=== PATIENT | female | born 1995 | race Hispanic/Latino ===

== ENCOUNTER 2018-11-06 16:39 | Emergency (ER) | payer OTHER ==
[~2018-11-06] VITALS: Ht 160 cm; Wt 72.7 kg
[2018-11-06] MEDS ORDERED: KEFL500C17 PO (19:07)
[2018-11-06 19:18] VITALS: BP 118/65
[2018-11-06 20:14] LABS: CHLAMYDIA DNA AMPLIFICATION NEGATIVE (NEGATIVE); GC DNA AMPLIFICATION NEGATIVE (NEGATIVE)
== END 2018-11-06 19:19 | disposition home or self-care (01) ==
LOC: M ED 16:39
DX: N76.89 Other specified inflammation of vagina and vulva (principal); N89.8 Other specified noninflammatory disorders of vagina

== ENCOUNTER 2018-11-08 18:44 | Emergency (ER) | payer OTHER ==
[~2018-11-08] VITALS: Ht 160 cm; Wt 72.7 kg
[~2018-11-08 18:44] MED LIST: KEFL500C17 PO
[2018-11-08] MEDS ORDERED: KETOROLAC 30 MG/ML VIAL (J1885) IM ONE (20:00)
[2018-11-08] MEDS ORDERED: VALT1TAB PO (20:39)
[2018-11-08] MEDS ORDERED: IBUP-1022 PO (20:40)
[2018-11-08] MEDS ORDERED: ACYCLOVIR 200 MG CAPSULE PO ONE (20:45)
[2018-11-08 20:51] VITALS: BP 122/71
== END 2018-11-09 02:29 | disposition home or self-care (01) ==
LOC: M ED 18:44
DX: B00.9 Herpesviral infection, unspecified (principal); Z86.19 Personal history of other infectious and parasitic diseases; E28.2 Polycystic ovarian syndrome; Z79.2 Long term (current) use of antibiotics
CPT/HCPCS: 81025; 87255; 96372; 99284; J1885

== ENCOUNTER 2018-12-30 19:49 | Emergency (ER) | payer OTHER ==
[~2018-12-30] VITALS: Ht 160 cm; Wt 75.0 kg
[~2018-12-30 19:49] MED LIST changes: +IBUP-1022 PO; +VALT1TAB PO
[2018-12-30] MEDS ORDERED: METR375C3 PO (19:55)
[2018-12-30] MEDS ORDERED: KETOROLAC 30 MG/ML VIAL (J1885) IV ONE (20:45)
[2018-12-30 21:14] LABS: BASO # 0.1 10^3/uL (0.0-0.2); BASO % 0.3 % (0.0-1.0); EOS # 0.1 10^3/uL (0.0-0.50); EOS % 0.6 % (0.0-3.0); HEMOGLOBIN 13.8 g/dl (12.0-15.5); LYMPH # 2.5 10^3/uL (1.5-6.5); LYMPH % 15.1 % (24.0-44.0); MEAN CORPUSCULAR HEMOGLOBIN 28.7 pg (27.0-33.0); MEAN CORPUSCULAR HGB CONC 32.9 g/dl (32.0-36.5); MEAN CORPUSCULAR VOLUME 87.3 fl (80.0-96.0); MONO % 6.3 % (0.0-5.0); NEUTROPHILS # 12.6 10^3/uL (1.8-7.7); NEUTROPHILS % 77.1 % (36.0-66.0); PLATELET COUNT, AUTOMATED 268 10^3/uL (150-450); RED BLOOD COUNT 4.81 10^6/uL (4.00-5.40); WHITE BLOOD COUNT 16.3 10^3/uL (4.0-10.0)
[2018-12-30 21:44] LABS: ALBUMIN 3.9 GM/DL (3.2-5.2); ALT/SGPT 43 U/L (12-78); BILIRUBIN,DIRECT 0.1 MG/DL (0.0-0.2); BILIRUBIN,TOTAL 0.5 MG/DL (0.2-1.0); BLOOD UREA NITROGEN 13 MG/DL (7-18); CALCIUM LEVEL 8.6 MG/DL (8.5-10.1); CARBON DIOXIDE LEVEL 24 MEQ/L (21-32); CHLORIDE LEVEL 108 MEQ/L (98-107); CREATININE FOR GFR 0.74 MG/DL (0.55-1.30); GLOMERULAR FILTRATION RATE > 60.0 (>60); GLUCOSE, FASTING 96 MG/DL (70-100); LIPASE 84 U/L (73-393); POTASSIUM SERUM 4.2 MEQ/L (3.5-5.1); SODIUM LEVEL 142 MEQ/L (136-145)
[2018-12-30] MEDS ORDERED: ISOVUE-370 76% 100ML VIAL (Q9967) As Ordered ONE (22:35)
--- NOTE | 2018-12-30 22:44 | REPVR ---
EXAM: US Pelvis Complete (transabdominal and transvaginal) EXAM DATE/TIME: 12/30/18 (9:45pm) CLINICAL HISTORY: 23 year old female. PCOS with moderate pelvic pain. TECHNIQUE: Imaging protocol: Real-time transabdominal and transvaginal pelvic ultrasound with image documentation. Complete examination. COMPARISON: No relevant prior studies available FINDINGS: The LMP is not provided. The uterus is anteverted, measuring 9.0 x 3.4 x 4.0 cm in dimensions. No uterine mass is seen. The endometrium measures 8 mm in thickness. The right ovary measures 4.0 x 2.6 x 2.8 cm in size. The left ovary measures 4.6 x 2.7 x 3.9 cm in size. Complex left ovarian cyst (2 cm avg. size). Multiple small peripheral follicles are present in each ovary. There is no evidence of ovarian torsion on Doppler evaluation. Moderate amount of complex CVS fluid (probably hemorrhagic fluid). No solid adnexal masses. IMPRESSION: Findings compatible with PCOS. Complex, probably hemorrhagic left ovarian cyst (2 cm size), with probable rupture or leakage. Complex CDS fluid (probably hemorrhagic fluid). No evidence of ovarian torsion. Electronically signed by: Annmarie Coker On 12/30/2018 22:43:49 PM
[2018-12-30 22:48] LABS: CHLAMYDIA DNA AMPLIFICATION NEGATIVE (NEGATIVE); GC DNA AMPLIFICATION NEGATIVE (NEGATIVE)
[2018-12-30 22:50] VITALS: BP 115/52
--- NOTE | 2018-12-30 22:57 | REPVR ---
EXAM: CT Abdomen and Pelvis With Contrast EXAM DATE/TIME: 12/30/18 (10:22pm) CLINICAL HISTORY: 23 year old female with RLQ pain (radiating across her abdomen). History of PCOS. TECHNIQUE: Imaging protocol: Axial computed tomography images of the abdomen and pelvis with intravenous contrast. Coronal and sagittal reformatted images were created and reviewed. Radiation optimization: All CT scans at this facility use at least one of these dose optimization techniques: automated exposure control; mA and/or kV adjustment per patient size (includes targeted exams where dose is matched to clinical indication); or iterative reconstruction. Contrast material: Iso 370 Contrast volume: 100 ml Contrast route: IV COMPARISON: US PELVIS of 12/30/18 FINDINGS: ABDOMEN: Liver: No solid mass. Mild fatty infiltration. Gallbladder and bile ducts: Normal. No calcified stones. No ductal dilatation. Pancreas: Normal. No ductal dilatation. Spleen: Normal. No splenomegaly. Adrenals: Normal. No mass. Kidneys and ureters: Normal. No hydronephrosis. Stomach and bowel: Normal. No bowel obstruction. No mucosal thickening. Appendix: No evidence of appendicitis. PELVIS: Bladder: Unremarkable as visualized. Reproductive: Mildly prominent ovaries. Fluid: Moderate amount of hyperdense CDS fluid (CT density = 37 HU). ABDOMEN and PELVIS: Intraperitoneal space: Normal. No free air. No significant fluid collection. Bones/joints: No acute fracture nor dislocation. Soft tissues: Unremarkable. Vasculature: Normal. No abdominal aortic aneurysm. Lymph nodes: Normal. No enlarged lymph nodes. IMPRESSION: No acute bowel pathology. No hydronephrosis. Moderate amount of hyperdense pelvic fluid --- probable hemorrhagic fluid. Suspect ovarian cyst rupture (see separate US PELVIS report) (history of PCOS). Electronically signed by: Annmarie Coker On 12/30/2018 22:57:18 PM
[2018-12-30] MEDS ORDERED: KETO10TAB PO (23:28)
--- NOTE | 2018-12-31 08:59 | ED PDOC ---
Post-Departure Follow-Up ct abd/p and pelvic us faxed to [facility] for [facility] Lore Roth MD Dec 31, 2018 08:59
== END 2018-12-30 23:39 | disposition home or self-care (01) ==
LOC: M ED 19:49
DX: E28.2 Polycystic ovarian syndrome (principal); B02.9 Zoster without complications; Z87.42 Personal history of other diseases of the female genital tract; Z79.899 Other long term (current) drug therapy
CPT/HCPCS: 74177; 76830; 76856; 80048; 80076; 81001; 81025; 83605; 83690; 85025; 87086; 87210; 87491; 87591; 87661; 93976; 96374; 99284; J1885; Q9967

== ENCOUNTER 2019-02-19 16:52 | Emergency (ER) | payer OTHER ==
[~2019-02-19] VITALS: Ht 160 cm; Wt 77.3 kg
[~2019-02-19 16:52] MED LIST changes: +KETO10TAB PO; +METR375C3 PO
[2019-02-19] MEDS ORDERED: PROBCAP14 PO (16:59)
[2019-02-19] MEDS ORDERED: prenatal (16:59)
--- NOTE | 2019-02-19 17:31 | REP ---
Left knee five views: There is focal subcortical calcification in the diametaphysis of the distal femur medially compatible with healing fibrous cortical defect. Mineralization and joint spaces otherwise are unremarkable. There is no fracture or dislocation. No effusion. No calcifications. Impression: Healing fibrous cortical defect of the distal femur as described. Otherwise, negative left knee. Electronically Signed by Elijah Gutierrez MD 02/19/2019 05:22 P
[2019-02-19] MEDS ORDERED: KETOROLAC 60 MG/2 ML VIAL (J1885) IM ONE (19:45)
[2019-02-19] MEDS ORDERED: NAPR-837 PO (21:34)
[2019-02-19] MEDS ORDERED: ROBA500T PO (21:35)
[2019-02-19 21:43] VITALS: BP 133/78
--- NOTE | 2019-02-20 07:20 | REP ---
Left tibia-fibula four views : There is no fracture or dislocation. Mineralization and joint spaces are normal. There are no calcifications or foreign bodies. Impression: Negative Left tibia-fibula . Electronically Signed by Elijah Gutierrez MD 02/20/2019 07:12 A
--- NOTE | 2019-02-20 07:21 | REP ---
Left ankle four views : There is no fracture or dislocation. Mineralization and joint spaces are normal. There are no calcifications or foreign bodies. Impression: Negative left ankle . Electronically Signed by Elijah Gutierrez MD 02/20/2019 07:13 A
== END 2019-02-19 21:49 | disposition home or self-care (01) ==
LOC: M ED 16:52
DX: S83.92XA Sprain of unspecified site of left knee, initial encounter (principal); M85.00 Fibrous dysplasia (monostotic), unspecified site; X50.1XXA Overexertion from prolonged static or awkward postures, initial encounter; Y92.89 Other specified places as the place of occurrence of the external cause; Y93.89 Activity, other specified; Y99.1 Military activity; Z79.899 Other long term (current) drug therapy
CPT/HCPCS: 73564; 73590; 73610; 84702; 96372; 99284; J1885

== ENCOUNTER 2019-07-07 18:53 | Emergency (ER) | payer OTHER ==
[~2019-07-07] VITALS: Ht 160 cm; Wt 76.4 kg
[~2019-07-07 18:53] MED LIST changes: +NAPR-837 PO; +PROBCAP14 PO; +ROBA500T PO; +prenatal
[2019-07-07 20:00] LABS: BASO # 0.1 10^3/uL (0.0-0.2); BASO % 0.4 % (0.0-1.0); EOS # 0.1 10^3/uL (0.0-0.5); EOS % 1.1 % (0.0-3.0); HEMOGLOBIN 13.9 g/dl (12.0-15.5); LYMPH # 2.4 10^3/uL (1.5-5.0); LYMPH % 19.8 % (24.0-44.0); MEAN CORPUSCULAR HEMOGLOBIN 27.7 pg (27.0-33.0); MEAN CORPUSCULAR HGB CONC 32.3 g/dl (32.0-36.5); MEAN CORPUSCULAR VOLUME 85.8 fl (80.0-96.0); MONO # 0.7 10^3/uL (0.0-0.8); MONO % 6.1 % (0.0-5.0); NEUTROPHILS # 8.6 10^3/uL (1.5-8.5); NEUTROPHILS % 72.1 % (36.0-66.0); PLATELET COUNT, AUTOMATED 269 10^3/uL (150-450); RED BLOOD COUNT 5.01 10^6/uL (4.00-5.40); WHITE BLOOD COUNT 11.9 10^3/uL (4.0-10.0)
--- NOTE | 2019-07-07 21:23 | REPVR ---
PROCEDURE INFORMATION: Exam: US Pelvis Complete, Transabdominal Exam date and time: 07/07/2019 8:52 PM Clinical history: 23 years old, female; Pelvic pain; Additional info: Left pelvic pain; R/O cyst vs torsion TECHNIQUE: Imaging protocol: Real-time transabdominal pelvic ultrasound with image documentation. Complete exam. COMPARISON: US PELVIC NON-OB COMPLETE 12/30/2018 9:42 PM FINDINGS: Uterus/cervix: The uterus measures 8.7 cm in its cephalocaudad dimension and 3.2 x 4.2 cm in its AP and lateral dimensions. The endometrium measures 11 mm. Right adnexa: The right ovary measures 2.8 x 1.9 x 2.8 cm and demonstrates arterial and venous blood flow. Left adnexa: The left ovary measures 3.3 x 3.5 x 3.0 cm and demonstrates a cyst/follicle measuring 22 x 18 x 15 mm. There is left ovarian arterial and venous blood flow. Free fluid: None. Bladder: The urinary bladder is normal. IMPRESSION: 1. Left ovarian cyst/follicle measuring 22 x 18 x 15 mm. 2. Otherwise negative pelvic sonogram. There is bilateral ovarian blood flow with no torsion. Electronically signed by: Surya Rod On 07/07/2019 21:23:35 PM
[2019-07-07 21:28] LABS: CHLAMYDIA DNA AMPLIFICATION POSITIVE (NEGATIVE); GC DNA AMPLIFICATION NEGATIVE (NEGATIVE)
[2019-07-07] MEDS ORDERED: AZITHROMYCIN 250 MG TAB PO ONE (22:00)
[2019-07-07 22:08] VITALS: BP 119/80
[2019-07-07] MEDS ORDERED: BACTRIM 160MG/800MG DS TAB PO ONE (22:15)
[2019-07-07] MEDS ORDERED: BACT800T5 PO (22:20)
== END 2019-07-07 22:44 | disposition home or self-care (01) ==
LOC: M ED 18:53
DX: N39.0 Urinary tract infection, site not specified (principal); N83.02 Follicular cyst of left ovary; A74.9 Chlamydial infection, unspecified; E28.2 Polycystic ovarian syndrome

== ENCOUNTER 2019-08-25 16:08 | Emergency (ER) | payer OTHER ==
[~2019-08-25] VITALS: Ht 160 cm; Wt 75.2 kg
[~2019-08-25 16:08] MED LIST changes: +BACT800T5 PO
[2019-08-25] MEDS ORDERED: PREN29TA4 PO (16:22)
[2019-08-25 17:56] LABS: BASO # 0.1 10^3/uL (0.0-0.2); BASO % 0.5 % (0.0-1.0); EOS # 0.1 10^3/uL (0.0-0.5); EOS % 0.8 % (0.0-3.0); HEMATOCRIT 39.9 % (36.0-47.0); HEMOGLOBIN 13.3 g/dl (12.0-15.5); LYMPH # 2.7 10^3/uL (1.5-5.0); LYMPH % 21.9 % (24.0-44.0); MEAN CORPUSCULAR HEMOGLOBIN 28.4 pg (27.0-33.0); MEAN CORPUSCULAR HGB CONC 33.3 g/dl (32.0-36.5); MEAN CORPUSCULAR VOLUME 85.1 fl (80.0-96.0); MONO % 7.9 % (0.0-5.0); NEUTROPHILS # 8.4 10^3/uL (1.5-8.5); NEUTROPHILS % 68.3 % (36.0-66.0); PLATELET COUNT, AUTOMATED 286 10^3/uL (150-450); RED BLOOD COUNT 4.69 10^6/uL (4.00-5.40); WHITE BLOOD COUNT 12.3 10^3/uL (4.0-10.0)
--- NOTE | 2019-08-25 19:45 | REPVR ---
PROCEDURE INFORMATION: Exam: US First Trimester, Transabdominal and US , Transvaginal Exam date and time: 08/25/2019 6:40 PM Age: 24 years old Clinical indication: complicated by abdominal or pelvic pain; Lower; First trimester; Gestational age or lmp: 4; ; Additional info: Cramping/discharge TECHNIQUE: Imaging protocol: Real-time transabdominal obstetrical ultrasound of the maternal pelvis and a first trimester , less than 14 weeks 0 days, with image documentation. Transvaginal imaging was used for better evaluation of the fetus and adnexa. COMPARISON: US PELVIC NON-OB COMPLETE 07/07/2019 8:38 PM FINDINGS: GESTATION: Gestation: No definitive intrauterine gestational sac is visualized. Ectopic cannot be excluded. Heart rate: N/A. Placenta: N/A. Amniotic fluid: N/A. BIOMETRY: Estimated gestational age: N/A. MATERNAL: Uterus: The uterus measures 8.9 x 4.2 x 4.6 cm. No uterine mass visualized. Cervix: Unremarkable, as visualized. Right adnexa: The right ovary measures 2.9 x 1.8 x 2.1 cm. Small follicles are visualized within the right ovary. There is preservation of blood flow within the right ovary. No adnexal mass. Left adnexa: The left ovary measures 3.4 x 2.3 x 2.5 cm. There is preservation of blood flow within the left ovary. Within the left ovary, there is a 9 mm dominant follicle or corpus luteum cyst. Intraperitoneal: No intraperitoneal free fluid. IMPRESSION: 1. No definitive intrauterine gestational sac is visualized. Ectopic cannot be excluded. Correlation with serial hCG levels and follow-up ultrasonography are recommended. 2. Within the left ovary, there is a 9 mm dominant follicle or corpus luteum cyst. Electronically signed by: Stefan Guevara On 08/25/2019 19:45:15 PM
[2019-08-25 20:49] VITALS: BP 142/66
[2019-08-25 21:17] LABS: CHLAMYDIA DNA AMPLIFICATION NEGATIVE (NEGATIVE); GC DNA AMPLIFICATION NEGATIVE (NEGATIVE)
== END 2019-08-25 21:32 | disposition home or self-care (01) ==
LOC: M ED 16:08
DX: O26.899 Other specified pregnancy related conditions, unspecified trimester (principal); O34.80 Maternal care for other abnormalities of pelvic organs, unspecified trimester; Z3A.00 Weeks of gestation of pregnancy not specified; Z79.899 Other long term (current) drug therapy

== ENCOUNTER → 2019-08-27 | Outpatient (CLI) | payer OTHER ==
[~2019-08-27] MED LIST changes: +PREN29TA4 PO
== END ==
LOC: M LAB 18:52
PROVIDERS: ATTEND Physician Assistant
DX: O26.899 Other specified pregnancy related conditions, unspecified trimester (principal); Z3A.00 Weeks of gestation of pregnancy not specified

== ENCOUNTER 2019-09-16 08:48 | Emergency (ER) | payer OTHER ==
[~2019-09-16] VITALS: Ht 160 cm; Wt 75.7 kg
[2019-09-16] MEDS ORDERED: VITAMIN B6 (08:55)
[2019-09-16] MEDS ORDERED: UNASOM (08:55)
[2019-09-16 10:22] LABS: BASO # 0.1 10^3/uL (0.0-0.2); BASO % 0.4 % (0.0-1.0); EOS # 0.1 10^3/uL (0.0-0.5); EOS % 0.7 % (0.0-3.0); HEMOGLOBIN 13.7 g/dl (12.0-15.5); LYMPH # 2.2 10^3/uL (1.5-5.0); LYMPH % 17.6 % (24.0-44.0); MEAN CORPUSCULAR HEMOGLOBIN 28.5 pg (27.0-33.0); MEAN CORPUSCULAR HGB CONC 33.4 g/dl (32.0-36.5); MEAN CORPUSCULAR VOLUME 85.4 fl (80.0-96.0); MONO # 0.7 10^3/uL (0.0-0.8); MONO % 5.2 % (0.0-5.0); NEUTROPHILS # 9.5 10^3/uL (1.5-8.5); NEUTROPHILS % 75.4 % (36.0-66.0); PLATELET COUNT, AUTOMATED 244 10^3/uL (150-450); WHITE BLOOD COUNT 12.7 10^3/uL (4.0-10.0)
[2019-09-16 10:28] LABS: APPEARANCE, URINE HAZY (CLEAR); BACTERIA, URINE AUTO 2+ (NEGATIVE); BILIRUBIN, URINE AUTO NEGATIVE (NEGATIVE); BLOOD, URINE BLOOD NEGATIVE (NEGATIVE); COLOR, URINE YELLOW (YELLOW); GLUCOSE, URINE (UA) AUTO NEGATIVE (NEGATIVE); KETONE, URINE AUTO TRACE mg/dL (NEGATIVE); LEUKOCYTE ESTERASE, URINE AUTO TRACE (NEGATIVE); MUCUS, URINE SMALL (NEGATIVE); NITRITE, URINE AUTO NEGATIVE (NEGATIVE); PROTEIN, URINE AUTO NEGATIVE (NEGATIVE); RBC, URINE AUTO 6 /HPF (0-3); SPECIFIC GRAVITY URINE AUTO 1.019 (1.002-1.035); SQUAMOUS EPITHELIAL CELL UR AU 2 /HPF (0-6); UROBILINOGEN, URINE AUTO 0.2 mg/dL (0.0-2.0); WBC, URINE AUTO 2 /HPF (0-3)
[2019-09-16 10:48] LABS: INFLUENZA A AMPLIFICATION NEGATIVE (NEGATIVE); INFLUENZA B AMPLIFICATION NEGATIVE (NEGATIVE)
[2019-09-16 11:10] VITALS: BP 116/70
[2019-09-16] MEDS ORDERED: ACETAMINOPHEN 325 MG TAB PO ONE (11:30)
[2019-09-16] MEDS ORDERED: KEFL500C17 PO (11:32)
== END 2019-09-16 11:40 | disposition home or self-care (01) ==
LOC: M ED 08:48
DX: O23.41 Unspecified infection of urinary tract in pregnancy, first trimester (principal); Z3A.01 Less than 8 weeks gestation of pregnancy; Z79.899 Other long term (current) drug therapy

== ENCOUNTER 2019-09-17 10:29 | Emergency (ER) | payer OTHER ==
[~2019-09-17] VITALS: Ht 160 cm; Wt 76.1 kg
[~2019-09-17 10:29] MED LIST changes: +UNASOM; +VITAMIN B6
[2019-09-17 11:23] LABS: HEMATOCRIT 38.7 % (36.0-47.0); MEAN CORPUSCULAR HEMOGLOBIN 28.8 pg (27.0-33.0); MEAN CORPUSCULAR HGB CONC 33.6 g/dl (32.0-36.5); MEAN CORPUSCULAR VOLUME 85.6 fl (80.0-96.0); PLATELET COUNT, AUTOMATED 258 10^3/uL (150-450); RED BLOOD COUNT 4.52 10^6/uL (4.00-5.40); WHITE BLOOD COUNT 13.6 10^3/uL (4.0-10.0)
--- NOTE | 2019-09-17 13:16 | REP ---
EMERGENCY FIRST TRIMESTER OBSTETRIC SONOGRAPHY: HISTORY: Vaginal bleeding. Comparison sonography, August 15, 2019. Transabdominal and transvaginal scanning are performed. There is a living single intrauterine gestation. The crown-rump length of the embryonic pole is 16 mm. This corresponds to an 9-uqnq-4-day gestational age estimate. heart rate is recorded at 178 beats per minute. There is a subchorionic fluid collection consistent with a hemorrhage along the inferior aspect of the sac. This measures 1.6 x 1.8 x 2.6 cm. There is a small cyst in the maternal left ovary consistent with corpus luteum. No free fluid. IMPRESSION: Single living intrauterine gestation at 8 weeks 0 days by crown-rump length. JOSHUA by sonography, April 28, 2020. There is a 2.6 cm subchorionic hemorrhage at the inferior aspect of the gestational sac. Electronically Signed by David Tee MD 09/17/2019 01:42 P
[2019-09-17 14:18] LABS: CHLAMYDIA DNA AMPLIFICATION NEGATIVE (NEGATIVE); GC DNA AMPLIFICATION NEGATIVE (NEGATIVE)
[2019-09-17 15:14] VITALS: BP 116/70
== END 2019-09-17 16:16 | disposition home or self-care (01) ==
LOC: M ED 11:54
DX: O20.0 Threatened abortion (principal); O26.891 Other specified pregnancy related conditions, first trimester; O20.8 Other hemorrhage in early pregnancy; Z32.01 Encounter for pregnancy test, result positive; O34.81 Maternal care for other abnormalities of pelvic organs, first trimester; Z3A.08 8 weeks gestation of pregnancy; Z79.899 Other long term (current) drug therapy

== ENCOUNTER 2019-10-08 20:51 | Emergency (ER) | payer OTHER ==
[~2019-10-08] VITALS: Ht 160 cm; Wt 71.8 kg
[2019-10-08] MEDS ORDERED: ONDA-83 PO (21:00)
[2019-10-08 21:43] LABS: BASO % 0.3 % (0.0-1.0); EOS # 0.1 10^3/uL (0.0-0.5); EOS % 0.9 % (0.0-3.0); HEMATOCRIT 37.8 % (36.0-47.0); HEMOGLOBIN 12.4 g/dl (12.0-15.5); LYMPH # 2.4 10^3/uL (1.5-5.0); LYMPH % 19.9 % (24.0-44.0); MEAN CORPUSCULAR HEMOGLOBIN 27.9 pg (27.0-33.0); MEAN CORPUSCULAR HGB CONC 32.8 g/dl (32.0-36.5); MEAN CORPUSCULAR VOLUME 85.1 fl (80.0-96.0); MONO # 0.7 10^3/uL (0.0-0.8); MONO % 5.6 % (0.0-5.0); NEUTROPHILS # 8.9 10^3/uL (1.5-8.5); NEUTROPHILS % 72.7 % (36.0-66.0); PLATELET COUNT, AUTOMATED 216 10^3/uL (150-450); RED BLOOD COUNT 4.44 10^6/uL (4.00-5.40); WHITE BLOOD COUNT 12.2 10^3/uL (4.0-10.0)
[2019-10-08 22:11] LABS: ALBUMIN 3.5 GM/DL (3.2-5.2); ALT/SGPT 28 U/L (12-78); BILIRUBIN,DIRECT 0.2 MG/DL (0.0-0.2); BILIRUBIN,TOTAL 0.2 MG/DL (0.2-1.0); BLOOD UREA NITROGEN 5 MG/DL (7-18); CALCIUM LEVEL 9.3 MG/DL (8.5-10.1); CARBON DIOXIDE LEVEL 28 MEQ/L (21-32); CHLORIDE LEVEL 106 MEQ/L (98-107); CREATININE FOR GFR 0.69 MG/DL (0.55-1.30); GLOMERULAR FILTRATION RATE > 60.0 (>60); GLUCOSE, FASTING 85 MG/DL (70-100); LIPASE 73 U/L (73-393); POTASSIUM SERUM 3.8 MEQ/L (3.5-5.1); SODIUM LEVEL 139 MEQ/L (136-145); TOTAL PROTEIN 6.7 GM/DL (6.4-8.2)
[2019-10-08] MEDS ORDERED: METOCLOPRAMIDE INJ 10MG/2ML VIAL (J2765) IV ONE (22:30)
[2019-10-08 23:23] LABS: INFLUENZA A AMPLIFICATION NEGATIVE (NEGATIVE); INFLUENZA B AMPLIFICATION NEGATIVE (NEGATIVE)
[2019-10-09] VITALS: BP 128/75
[2019-10-09] MEDS ORDERED: diphenhydrAMINE 25 MG CAP PO ONE
== END 2019-10-09 00:07 | disposition home or self-care (01) ==
LOC: M ED 20:51
DX: O21.0 Mild hyperemesis gravidarum (principal); Z3A.11 11 weeks gestation of pregnancy; Z79.899 Other long term (current) drug therapy
CPT/HCPCS: 80048; 80076; 81001; 83690; 85025; 87086; 87502; 96374; 99284; J2765

== ENCOUNTER → 2019-12-12 | Outpatient (CLI) | payer OTHER ==
[~2019-12-12] MED LIST changes: +ONDA-83 PO
--- NOTE | 2019-12-12 17:47 | REP ---
Obstetric sonography: History: Supervision of , for anatomy. Findings: Scanning through the gravid uterus demonstrates a viable single intrauterine gestation in a breech lie. motion is observed and heart rate is recorded at 144 beats per minute. An anterior grade 1 placenta is seen without evidence of previa or abruption. Amniotic fluid is subjectively normal. Closed cervical length is 3.2 cm. No extrauterine abnormalities observed. Umbilical cord is seen draping over the shoulders. No anomaly is seen. nose and lips are seen but facial profile is less than optimally seen. Similarly four chamber heart visualization was less than optimal due to position. The following additional anatomic structures are identified and felt to be sonographically unremarkable: cranium, choroid plexus, cavum, cerebellum and posterior fossa, lungs, left and right ventricular outflow tract views, diaphragm, left-sided stomach, abdominal wall cord insertion, three-vessel cord, kidneys and bladder, spine, upper and lower extremities. Biometry chart: BPD 4.6 cm = 19 weeks 6 days HC 17.4 cm = 20 weeks 0 days AC 15.0 cm = 20 weeks 2 days FL 3.3 cm = 20 weeks 3 days HL 3.1 cm = 20 weeks 3 days HC/AC ratio normal 1.16. Cephalic index normal 0.72. Estimated weight 345 grams, 0 pounds 12 ounces, 54th percentile for 20 weeks 1 day. Impression: Viable single intrauterine gestation at 20 weeks 1 day by today's composite sonographic criteria. Expected gestational age estimate based on prior sonography is 20 weeks 2 days. JOSHUA by prior sonography 28 April 2020. facial profile and four-chamber heart views are less than optimally visualized due to position. Electronically Signed by David Tee MD 12/12/2019 07:17 P
== END ==
LOC: M RAD 13:48
PROVIDERS: ATTEND Nurse Practitioner Women's Health
DX: Z34.92 Encounter for supervision of normal pregnancy, unspecified, second trimester (principal); Z3A.20 20 weeks gestation of pregnancy

== ENCOUNTER → 2020-01-06 | Outpatient (CLI) | payer OTHER ==
--- NOTE | 2020-01-07 05:53 | REP ---
Clinical: Anatomical evaluation. Comparison: 12/12/2019 . Findings: Examination demonstrates a single live intrauterine in cephalic presentation. motion is identified by technologist. Placenta is noted anterior and grade I without evidence for placenta previa or abruption. Amniotic fluid volume is normal. Cervix measures 3.4 cm in length and appears closed. Nuchal cord cannot be excluded. Gestational age by LMP 23 weeks 5 days with JOSHUA 04/29/2020 . Gestational age by current measurements 23 weeks 6 days with JOSHUA 04/28/2020 . FHR equals 149 beats per minute. Estimated weight 622 grams ( 45th percentile). Anatomical assessment demonstrates normal structures including cranium, choroid plexus, cavum, cerebellum/posterior fossa, facial features, lungs, four-chamber heart/ventricular outflow tracts, diaphragm, stomach, cord insertion/three-vessel cord, kidneys/bladder, spine, and extremities. Echogenic focus within the left cardiac ventricle again noted and consistent with prominent chordae tendineae. Impression: 1. Single live intrauterine demonstrating appropriate interval growth in cephalic presentation. 2. In conjunction with prior examination anatomical assessment is essentially normal. 3. Nuchal cord cannot be excluded. Electronically Signed by Eduardo Lau MD 01/07/2020 05:44 A
== END ==
LOC: M RAD 14:23
PROVIDERS: ATTEND Obstetrics & Gynecology
DX: Z36.2 Encounter for other antenatal screening follow-up (principal); Z3A.23 23 weeks gestation of pregnancy

== ENCOUNTER 2020-04-19 09:25 | Inpatient (IN) | payer OTHER ==
[2020-04-19] MEDS ORDERED: PENICILLIN G POTASSIUM 5 MU VIAL As Ordered ONE (10:13)
[2020-04-19] MEDS ORDERED: FENTANYL 2MCG/ML ROPIVACAINE 0.2% IN 0.9% NACL 100ML IVBAG As Ordered ONE ×2 (12:40→22:46)
[2020-04-19] MEDS ORDERED: PENICILLIN 100,000 U/ML SYRINGE 2.5MU As Ordered ONE ×2 (14:43→18:42)
[2020-04-19] MEDS ORDERED: ONDANSETRON 4MG/2ML VIAL As Ordered ONE (16:25)
[2020-04-19] MEDS ORDERED: OXYTOCIN INJ 10 UNITS/ML VIAL (J2590) As Ordered ONE (19:14)
[2020-04-19] MEDS ORDERED: OXYTOCIN 30 UNITS IN 0.9% NaCl 500ML IV BAG (J2590) As Ordered ONE (19:14)
[2020-04-20] MEDS ORDERED: IBUPROFEN 800 MG TAB As Ordered ONE (07:31)
[2020-04-21] MEDS ORDERED: IBUPROFEN 800 MG TAB As Ordered ONE ×2 (08:23→17:23)
[2020-04-21] MEDS ORDERED: ACETAMINOPHEN 500 MG TAB PO PRN (16:15)
[2020-04-21] MEDS ORDERED: DOCUSATE SODIUM 100 MG CAP PO PRN (16:15)
[2020-04-21] MEDS ORDERED: ANUSOL HC CREAM 30GM TOP PRN (16:15)
[2020-04-21] MEDS ORDERED: MOM 30ML SUSPENSION UDC PO PRN (16:15)
[2020-04-21] MEDS ORDERED: SLF 3 ML SYR IV PRN (16:15)
[2020-04-21] MEDS ORDERED: METHYLERGONOVINE MALEATE 0.2 MG TAB PO PRN (16:15)
[2020-04-21] MEDS ORDERED: IBUPROFEN 800 MG TAB PO PRN (16:15)
[2020-04-21] MEDS ORDERED: ACETAMINOPHEN TAB 650MG DOSE (2X325MG) PO PRN (16:15)
[2020-04-21] MEDS ORDERED: SLF 3 ML SYR IV SCH (22:00)
[2020-04-23 12:55] LABS: HEMATOCRIT 25.2 % (36.0-47.0); HEMOGLOBIN 8.4 g/dl (12.0-15.5); MEAN CORPUSCULAR HEMOGLOBIN 27.5 pg (27.0-33.0); MEAN CORPUSCULAR HGB CONC 33.3 g/dl (32.0-36.5); MEAN CORPUSCULAR VOLUME 82.4 fl (80.0-96.0); PLATELET COUNT, AUTOMATED 202 10^3/uL (150-450); RED BLOOD COUNT 3.06 10^6/uL (4.00-5.40); WHITE BLOOD COUNT 13.8 10^3/uL (4.0-10.0)
--- NOTE | 2020-06-08 14:20 | HPE ---
DATE OF ADMISSION: 04/19/2020 This is a 24-year-old, 1, para 0, last menstrual period (LMP) 07/24/2019, estimated date of confinement (EDC) 04/29/2020 at 38 and 1 weeks of gestation with a history of spontaneous rupture of membranes at 0600 hours and contractions. Risk factors: She is HSV susceptible, GBS positive, echogenic focus, quad screen negative. Laboratories: O positive, HIV negative, RPR negative, Rubella immune, Varicella immune, Pap negative, urine negative, gonorrhea and chlamydia are negative, 1- hour glucose was 135, her 3-hour GTT fasting was 88, 1-hour 133, 2-hour 107, and 3-hour 78. Blood pressure 115/64, respirations are 18, pulse 81, temperature is 98.0. On examination, she appears distressed, symphysis fundus height is 38, vertex, category 1 strip. Pelvic examination: Clear liquor, 2 cm, posterior, 80% effaced, -3 station. Our plan of care is to give her antibiotic prophylaxis for GBS, epidural as required, and if necessary, augmentation. We discussed the risks and benefits of vaginal delivery including hemorrhage, infection, abnormalities, risk of emergency section. The risks of augmentation of Pitocin include tachysystole, uterine category 2-3 strip, need for emergency section, the use of forceps or a vacuum, in instances when baby is having difficulty and requires immediate delivery or maternal exhaustion when you cannot push out the baby on its own, are cephalohematoma, scratches to the head, or admission to the intensive care unit (NICU). Risks of vaginal delivery include tears, lacerations to the vagina, the perineum, to the rectum, cervical lacerations, all of which require repair at appropriate interval. The patient expressed understanding, is requesting epidural. Safe to proceed. [facility]
--- NOTE | 2020-06-11 15:56 | DN ---
DATE OF DELIVERY: 04/19/2020 DESCRIPTION OF DELIVERY: This patient is a 1, para 0, admitted with contractions and spontaneous rupture of membranes. She had a spontaneous vaginal delivery with epidural in place of a live female , weighing 7 pounds 10 ounces (3450 grams). Apgars of 9 and 9 at one and five minutes respectively. Arterial and venous pH was performed. Baby had terminal meconium and voiding at delivery. Patient sustained a first-degree tear and repaired in the usual fashion with 2-0 Vicryl on a [id number]. Placenta delivered spontaneously and complete. Lateral anteroposterior sierra of the cervix were intact. Sphincter was tight. Patients risk factors were GBS positive was treated in time, echogenic focus, but had a [id number], which was negative and HSV prophylaxis. In summary, term gestation with delivery of a live female . Uterus contracted well on the Pitocin. Patient and baby tolerated procedure well. MTDD
--- NOTE | 2020-06-12 17:42 | IPN ---
DATE: 04/20/2020 This lady is a 1, now para 1. Had a spontaneous vaginal delivery, female , weighing 7 pounds 10 ounces, 3450 grams, scores of 9 and 9 at one and five minutes, respectively. Arterial pH 7.37, base excess -2.9, venous pH 7.36, base excess -3.7. On the first day we discussed phlebitis, cystitis, mastitis, metritis, and cellulitis, diet, exercise, pain management, and perineal, breast, and wound care. The rest of the examination unremarkable. Normocephalic, atraumatic. Neck: Full range of motions. Pupils equal and reactive to light. Distal pulses are symmetric. No evidence of deep venous thrombosis (DVT), pulmonary embolus (PE), or superficial phlebitis. Chest is clear bilaterally to bases. No wheezes or rhonchi. No costovertebral angle (CVA) tenderness. Abdomen is soft. Uterus 2 below. Lochia is moderate. Four-quadrant bowel sounds are noted. Blood pressure 117/69, respirations are 18, pulse 78, temperature is 97.9. In summary, we have a term gestation, delivered a live- female . Plan is for discharge tomorrow. Medications will be picked up at [place]. A 6-week checkup at [facility]. MTDD
[2020-06-29 15:24] LABS: HEMOGLOBIN 10.5 g/dl (12.0-15.5); MEAN CORPUSCULAR HEMOGLOBIN 26.6 pg (27.0-33.0); MEAN CORPUSCULAR HGB CONC 32.8 g/dl (32.0-36.5); PLATELET COUNT, AUTOMATED 279 10^3/uL (150-450); RED BLOOD COUNT 3.95 10^6/uL (4.00-5.40); WHITE BLOOD COUNT 12.9 10^3/uL (4.0-10.0)
[2020-07-05 08:09] LABS: CORD GAS PH A 7.377 UNITS
[2020-07-05 08:10] LABS: CORD GAS ABE A -2.9; CORD GAS HCO3 A 21.8 MEQ/L; CORD GAS O2 SAT A 75.7 %; CORD GAS PCO2 A 37.9 mmHg; CORD GAS PO2 A 32.4 mmHg; CORD GAS SBC A 21.5 MEQ/L; CORD GAS TCO2 A 22.9 MEQ/L
[2020-07-05 08:11] LABS: CORD GAS ABE V -3.7; CORD GAS HCO3 V 21.2 MEQ/L; CORD GAS O2 SAT V 72.8 %; CORD GAS PCO2 V 38.1 mmHg; CORD GAS PH V 7.363 UNITS; CORD GAS PO2 V 30.7 mmHg; CORD GAS SBC V 20.8 MEQ/L; CORD GAS TCO2 V 22.4 MEQ/L
== END 2020-04-22 23:17 | disposition home or self-care (01) | DRG 807 ==
LOC: M OBS 09:25
PROVIDERS: ADMIT Obstetrics & Gynecology; ATTEND Obstetrics & Gynecology
PROC: 10E0XZZ Delivery of Products of Conception, External Approach (ICD-10-PCS; principal; 2020-04-19)
PROC: 0HQ9XZZ Repair Perineum Skin, External Approach (ICD-10-PCS; 2020-04-19)
DX: O70.0 First degree perineal laceration during delivery (principal); Z37.0 Single live birth; Z3A.38 38 weeks gestation of pregnancy; O77.0 Labor and delivery complicated by meconium in amniotic fluid; O99.824 Streptococcus B carrier state complicating childbirth

== ENCOUNTER 2021-05-13 20:54 | Emergency (ER) | payer OTHER ==
[~2021-05-13] VITALS: Ht 160 cm; Wt 81.5 kg
[2021-05-13] MEDS ORDERED: TRAZ1TAB14 PO (21:02)
[2021-05-13] MEDS ORDERED: PROZ40CA PO (21:02)
[2021-05-14] MEDS ORDERED: NS 1,000 ML IV ONE (02:50)
[2021-05-14] MEDS ORDERED: KETOROLAC 30 MG/ML 1ML VIAL IV ONE (02:50)
[2021-05-14] MEDS ORDERED: ACETAMINOPHEN 500 MG TAB PO ONE (02:50)
[2021-05-14] MEDS ORDERED: diphenhydrAMINE 50MG/ML VIAL (J1200) IV ONE (02:50)
[2021-05-14] MEDS ORDERED: MAG SULF 1GM/100ML (MAG RUN) 1 GM in IV 1 EA IV ONE (02:50)
[2021-05-14] MEDS ORDERED: METOCLOPRAMIDE INJ 10MG/2ML VIAL (J2765 PER 1) IV ONE (02:50)
[2021-05-14 03:00] LABS: BASO # 0.1 10^3/uL (0.0-0.2); BASO % 0.5 % (0.0-1.0); EOS # 0.1 10^3/uL (0.0-0.5); EOS % 1.1 % (0.0-3.0); HEMATOCRIT 40.1 % (36.0-47.0); HEMOGLOBIN 13.1 g/dl (12.0-15.5); LYMPH # 3.6 10^3/uL (1.5-5.0); LYMPH % 28.5 % (24.0-44.0); MEAN CORPUSCULAR HEMOGLOBIN 26.5 pg (27.0-33.0); MEAN CORPUSCULAR HGB CONC 32.7 g/dl (32.0-36.5); MONO # 0.8 10^3/uL (0.0-0.8); MONO % 6.3 % (2.0-8.0); NEUTROPHILS # 7.9 10^3/uL (1.5-8.5); NEUTROPHILS % 63.1 % (36.0-66.0); PLATELET COUNT, AUTOMATED 275 10^3/uL (150-450); RED BLOOD COUNT 4.95 10^6/uL (4.00-5.40); WHITE BLOOD COUNT 12.5 10^3/uL (4.0-10.0)
--- NOTE | 2021-05-14 05:05 | REPVR ---
PROCEDURE INFORMATION: Exam: CT Head Without Contrast Exam date and time: 05/14/2021 2:46 AM Age: 25 years old Clinical indication: Pain; Headache not specified; Additional info: Chronic headache TECHNIQUE: Imaging protocol: Computed tomography of the head without contrast. Radiation optimization: All CT scans at this facility use at least one of these dose optimization techniques: automated exposure control; mA and/or kV adjustment per patient size (includes targeted exams where dose is matched to clinical indication); or iterative reconstruction. COMPARISON: No relevant prior studies available. FINDINGS: Brain: Normal. No hemorrhage. Unremarkable white matter. No mass effect. Cerebral ventricles: No ventriculomegaly. Paranasal sinuses: Visualized sinuses are unremarkable. No fluid levels. Mastoid air cells: Visualized mastoid air cells are well aerated. Bones/joints: Unremarkable. No acute fracture. Soft tissues: Unremarkable. IMPRESSION: No acute intracranial abnormality. Electronically signed by: Tutu Brown On 05/14/2021 05:05:07 AM
[2021-05-14 07:04] VITALS: BP 107/62
== END 2021-05-14 07:07 | disposition home or self-care (01) ==
LOC: M ED 20:54
DX: R51.9 Headache, unspecified (principal); F32.9 Major depressive disorder, single episode, unspecified

== ENCOUNTER 2022-01-26 10:23 | Emergency (ER) | payer OTHER ==
[~2022-01-26] VITALS: Ht 160 cm; Wt 80.9 kg
[2022-01-26 10:23] VITALS: BP 137/92
[~2022-01-26 10:23] MED LIST changes: +PROZ40CA PO; +TRAZ1TAB14 PO
[2022-01-26] MEDS ORDERED: ALIG4CAP (10:38)
[2022-01-26] MEDS ORDERED: DULO1CAP5 PO (10:38)
[2022-01-26] MEDS ORDERED: ERGO500029 (10:38)
[2022-01-26] MEDS ORDERED: BACI500O8 TOP (12:14)
== END 2022-01-26 12:30 | disposition home or self-care (01) ==
LOC: M ED 10:23
DX: T22.011A Burn of unspecified degree of right forearm, initial encounter (principal); Y92.9 Unspecified place or not applicable; Y93.9 Activity, unspecified